=== PATIENT | female | born 1965 | race Caucasian/White ===

== ENCOUNTER 2021-08-06 08:10 | Day surgery (SDC) | payer OTHER ==
[2021-08-06] VITALS (139 sets, daily range): BP systolic 80–177; BP diastolic 39–104
--- NOTE | 2021-08-06 07:34 | NUR ---
PT ARRIVED TO RM 283, AMBULATORY WITH STEADY GAIT ACCOMPAINED BY . PT ALERT AND ORIENTED X4. NO APPARENT DISTRESS NOTED. PT ORIENTED TO ROOM AND CALL LIGHT SYSTEM. VS OBTAINED. DISCUSSED POC AND SAFETY PRECAUTIONS. PT VERBALIZED UNDERSTANDING. CALL LIGHT WITHIN REACH. WILL CONTINUE TO MONITOR.
[2021-08-06 08:42] LABS: HEMOGLOBIN 13.5 g/dl (12.0-16.0); IMMATURE GRANULOCYTES 0.1 % (0.0-5.0); MEAN CELL VOLUME 89.9 fL CALC (80.0-100.0); MEAN CORPUSCULAR HGB 29.6 pG CALC (26.0-32.0); MEAN CORPUSCULAR HGB CONC 32.9 g/dL CAL (32.0-36.0); NEUT# 3.83 thou/uL (2.00-7.15); RED BLOOD COUNT 4.56 mill/uL (4.20-5.60); RED CELL DISTRI WIDTH 12.4 % (11.5-15.5)
[2021-08-06 08:53] LABS: ALBUMIN 4.5 g/dL (3.2-5.0); ALKALINE PHOSPHATASE 85 u/l (38-126); ANION GAP 12 (6-22 (CALC)); BILIRUBIN, TOTAL 0.6 mg/dL (0.0-1.4); BUN 16 mg/dL (7-17); BUN/CREATININE RATIO 25 (12-20 (CALC)); CARBON DIOXIDE 28 mmol/l (22-30); CHLORIDE 106 mmol/l (95-108); CREATININE 0.7 mg/dL (0.5-1.0); GFR > 60 ML/MIN (>=60 (CALC)); GFR FOR AFR.AMER. > 60 ML/MIN (>=60 (CALC)); POTASSIUM 4.4 mmol/l (3.5-5.1); SGOT/AST 39 u/l (14-36); SODIUM 141 mmol/l (137-146); TOTAL PROTEIN 7.3 g/dL (6.3-8.2)
--- NOTE | 2021-08-06 09:40 | NUR ---
MEDICATED ORDERED. PT ALERT AND CONVERSIVE,CALM. INITIATED IV VITAQMIN C ORDERED.
--- NOTE | 2021-08-06 12:15 | NUR ---
Induction Note Patient to [facility] procedure room. Time out performed at 1215. Patient placed on monitors, Rafa hugger, bilateral wrist restraints applied for ET tube protection. Versed 5mg given IV push at 1216 Tourniquet applied to right arm Lidocaine 100mg given at 1218 IV push followed by Rocoronium 10mg at 1219 IV push and held for 90 seconds. Propofol bolus of 110mg given at 1221 IV push. Succinylcholine 80mg given IV push at 1222 . Smooth intubation with 7.5 ETT. Positive CO2. Positive Auscultation for air exchange. Patient placed on ventilator for spontaneous ventilation. Placed on Propofol IV drip at 1223. OG inserted. Positive air on auscultation. Positive gastric content. Stomach washed at this time.
--- NOTE | 2021-08-06 12:45 | NUR ---
OG close note Stomach washed at this time. Naltrexone 75mg via OG tube. OG will be clamped for 45 minutes.
--- NOTE | 2021-08-06 13:30 | NUR ---
OG open note OG open at this time. Gastric content draining into drainage bag. OG to drain for 45 minutes. Propofol will be titrated down based on patient.
--- NOTE | 2021-08-06 14:15 | NUR ---
OG close note Stomach washed at this time. Naltrexone 50 mg with Clonidine 0.2 mg via OG tube. OG will be clamped for 45 minutes.
--- NOTE | 2021-08-06 15:45 | NUR ---
OG close note Stomach washed at this time. Naltrexone 12.5 mg with Clonidine 0.2 mg via OG tube. OG will be clamped for 45 minutes.
--- NOTE | 2021-08-06 16:00 | NUR ---
PATIENT HERE FROM PROCEDURE. PATIENT IS SLEEPING VITALS TAKEN AND STABLE. BED ALARM SET.
--- NOTE | 2021-08-06 16:30 | NUR ---
Extubation note Closing medications given Benadryl 50mg IV push, Decadron 10mg IV push,Magnesium 4 grams IV, Zofran 8mg IV push, Octreotide 100mcg SC. Stomach washed out prior to extubation. Suctioned gastric content. OG removed. Patient extubated. Propofol Discontinued. Wrist restraints removed. Rafa hugger Removed. See ANR Moderate sedate recovery record for further notes and assessment.
--- NOTE | 2021-08-06 16:50 | NUR ---
patient transpoirted to [facility] via bed in stable condition report tonya senior
--- NOTE | 2021-08-06 19:30 | NUR ---
PT IN BED, NO SIGNS OF DISTRESS NOTED, RESP EVEN AND UNLABORED. PT RESTLESS IN BED, SPEECH IS GARBLED, NOTED PT HAS NO TEETH. ATTEMPTED TO DISCUSS POC, PT DOES NOT RESPOND WELL TO TEACHING AT THIS TIME. KEEPS ATTEMPTING TO GET OUT OF BED, WITHOUT ASSISTANCE. BED ALARM FOR SAFETY. ASSESSMENT COMPLETED AT THIS TIME, CALL LIGHT IN REACH,CONTINUE TO MONITOR.
--- NOTE | 2021-08-06 20:45 | NUR ---
PT CONTINUES TO BE RESTLESS AFTER MULTIPLE ATTEMPTS TO MAKE PT COMFORTABLE, PT ASSISTED TO BSC, PT VOIDED WITHOUT DIFFICULTY PT REQUIRES X2 ASSIST TO BSC, RESP EVEN AND UNLABORED. NO SIGNS OF DISTRESS NOTED, PT C/O PAIN TO HER R KNEE MD CALLED AND NOTIFIED, OBTAINED ORDERS, PT MEDICATED PER MAR, BED ALARM FOR SAFETY, PT REQUIRES FREQUENT REORIENTATION. PT NOT READY DUE TO BARRIERS, CALL LIGHT IN REACH,CONTINUE TO MONITOR.
--- NOTE | 2021-08-06 23:28 | NUR ---
PT CONTINUES TO BE RESTLESS IN BED, ATTEMPTING TO GET OUT OF BED ALONE, PT GAIT IS UNSTREADY. MEDICATED PER JUN, CALL LIGHT IN REACH, CONTINUE TO MONITOR.
[2021-08-07 03:49] VITALS: BP 145/98
--- NOTE | 2021-08-07 04:22 | NUR ---
PT RESTING IN BED, NO SIGNS OF DISTRESS NOTED, RESP EVEN AND UNLABORED. PT STILL HAS EPISODES OF RESTLESSNESS, SHE IS NOW MORE INTELLIGIBLE, PT MEDICATED PER MAR, CAMPGROUND CLEANING ATTENDANT AT BEDSIDE FOR AM BLOOD DRAW, BED ALARM IN PLACE FOR SAFETY. CALL LIGHT IN REACH,CONTINUE TO MONITOR.
[2021-08-07 04:51] LABS: HEMATOCRIT 41.6 % (37.0-47.0); HEMOGLOBIN 13.8 g/dl (12.0-16.0); IMMATURE GRANULOCYTES 0.8 % (0.0-5.0); MEAN CELL VOLUME 88.5 fL CALC (80.0-100.0); MEAN CORPUSCULAR HGB 29.4 pG CALC (26.0-32.0); MEAN CORPUSCULAR HGB CONC 33.2 g/dL CAL (32.0-36.0); NEUT# 10.92 thou/uL (2.00-7.15); RED BLOOD COUNT 4.7 mill/uL (4.20-5.60); RED CELL DISTRI WIDTH 12.3 % (11.5-15.5)
[2021-08-07 05:09] LABS: ALBUMIN 4.6 g/dL (3.2-5.0); ALKALINE PHOSPHATASE 91 u/l (38-126); ANION GAP 12 (6-22 (CALC)); BILIRUBIN, TOTAL 0.6 mg/dL (0.0-1.4); BUN 12 mg/dL (7-17); BUN/CREATININE RATIO 21 (12-20 (CALC)); CARBON DIOXIDE 24 mmol/l (22-30); CHLORIDE 107 mmol/l (95-108); CREATININE 0.6 mg/dL (0.5-1.0); GFR > 60 ML/MIN (>=60 (CALC)); GFR FOR AFR.AMER. > 60 ML/MIN (>=60 (CALC)); MAGNESIUM 2.1 mg/dL (1.6-2.3); POTASSIUM 3.8 mmol/l (3.5-5.1); SGOT/AST 51 u/l (14-36); SODIUM 140 mmol/l (137-146); TOTAL PROTEIN 7.5 g/dL (6.3-8.2)
[2021-08-07 06:52] VITALS: BP 140/74
--- NOTE | 2021-08-07 08:00 | NUR ---
PATIENT IS SLEEPING WITTH NO SXS OF DISTRESS, PATIENT BREATHING EVENLY. CALL LIGHT WITH IN REACH. BED ALARM ON.
[2021-08-07 10:12] VITALS: BP 151/75
--- NOTE | 2021-08-07 12:00 | NUR ---
PATIENT IS SLEEPING, I WOKE HER UP TO CHANGE BED AND HER CLOTHES, WASHED HER UP SHE SOILED THE BED. PATIENT THEN GOT COMFORTABLE AND WENT BACK TO SLEEP. CALL LIGHT IN REACH AND BED ALAM ON.
--- NOTE | 2021-08-07 15:47 | NUR ---
GOT PATIENT UP TO SHOWER, REMOVED IV, AND HELPED HER GET DRESSED. NO COMPLAINTS FROM PATIENT AT THIS TIME.
--- NOTE | 2021-08-07 16:10 | NUR ---
PATIENT TOOK SHOWER, IVS REMOVED, ASSISTED PATIENT TO CELL BIOLOGY SCIENTIST BUT PATIENT STATES THAT THE CHAIR IS VERY UNCOMFORTABLE SO SHE WENT BACK TO BED.CALL LIGHT IN REACH AND BED ALARM ON.
--- NOTE | 2021-08-07 16:35 | NUR ---
Discharge instructions given. Patient verbalizes understanding of same. Discharged in stable condition via Wheelchair to Home with family. All belongings sent with pt.
== END 2021-08-07 17:18 | disposition home or self-care (01) | DRG 897 ==
LOC: ANR 08:10 → MS2 08:11 → ANR 10:30
PROVIDERS: ATTEND Anesthesiology
DX: F11.20 Opioid dependence, uncomplicated (principal)
CPT/HCPCS: J2060; J2354